=== PATIENT | male | born 1960 | race Two or more races ===

== ENCOUNTER 2019-01-21 14:30 | Inpatient (IN) | payer MEDICARE, OTHER ==
[~2019-01-21] VITALS: Ht 172.7 cm; Wt 68.9 kg
[2019-01-21] MEDS ORDERED: MAG HYDROX/AL HYDROX/SIMETH 30 ML UDC PO PRN (15:30)
[2019-01-21] MEDS ORDERED: MAGNESIUM HYDROXIDE 30 ML UDC PO PRN (15:30)
[2019-01-21] MEDS ORDERED: BLOOD SUGAR DIAGNOSTIC 1 EACH STRIP IN ONE (15:30)
[2019-01-21 16:00] VITALS: BP 151/100
--- NOTE | 2019-01-21 17:26 | NUR ---
GPS/RN-NOTES [facility] 58 [facility]ARTEL ( PSYCHIATRIST) MADE AWARE WITH ORDERS AND DR. CAT MADE AWARE OF THE ADMISSION. PATIENT ON 5150 HOLD FOR DTS. UPON FACE TO FACE ASSESSMENT, PATIENT A/O TO NAME ONLY AMBULATORY USING WALKER.HOLD WAS VERIFIED WITH THE PATIENT BUT PATIENT WAS UNABLE TO MAKE MEANINGFUL CONVERSATION DUE TO PSYCHOTIC BEHAVIOR. ADVISEMENT AND PATIENT'S RIGHT WAS GIVEN TO THE PATIENT. FULL BODY ASSESSMENT, CONTRABAND AND MRSA SWAB DONE. PATIENT WAS ORIENTED IN THE UNIT AND UNIT POLICIES. PATIENT'S FATHER KAYLA JOHNS [phone] MADE AWARE OF THE ADMISSION.PER THE FATHER HE IS THE DPOA FOR THE PATIENT ORTHOPEDIC CODER INSTRUCTED KAYLA JOHNS TO FAX THE DPOA PAPER IN THE UNIT. STATED " I WILL FAX IT TOMORROW". PATIENT WAS UNABLE TO SIGN ADMISSION PAPERS DUE TO MENTAL STATUS.
[2019-01-21 20:00] VITALS: BP 149/88
[2019-01-22] MEDS: clonazePAM 0.5 MG TABLET PO PRN ×2 (02:35→21:51)
[2019-01-22 06:39] LABS: ALBUMIN 2.7 g/dL (3.4-5.0); BILIRUBIN,TOTAL 0.4 mg/dL (0.2-1.0); CALCIUM, SERUM 8.5 mg/dL (8.5-10.1); CREATININE 0.7 mg/dL (0.6-1.3); POTASSIUM 4.5 mmol/L (3.5-5.1); TOTAL PROTEIN, SERUM 7.3 g/dL (6.4-8.2)
[2019-01-22 06:48] LABS: CHOLESTEROL 103 mg/dL (<200); HDL CHOLESTEROL 27 mg/dL (40-60); LDL 72 mg/dL (0-99); TRIGLYCERIDES 72 mg/dL (30-150)
[2019-01-22 08:00] VITALS: BP 128/61
[2019-01-22] MEDS: DIVALPROEX SODIUM 250 MG TABLET.DR PO SCH ×2 (10:22→20:53)
[2019-01-22] MEDS: risperiDONE 1 MG TABLET PO SCH ×2 (10:23→16:39)
--- NOTE | 2019-01-22 11:33 | NUR ---
WOUND CARE CONSULT: PATIENT PRESENTS WITH SCABS ON RT AND LT TOES,POA, PATIENT IS INDEPENDENT WITH BED MOBILITY WILL DEFER TO DP FOR TREATMENT PLANS, DISCUSSED PLAN OF CARE WITH NURSING STAFF Addendum: 01/22/19 at 1141 by JAMEEL NGUYEN RN Amended: Links added.
--- NOTE | 2019-01-22 15:00 | NUR ---
GROUP NOTE: YAN prompted pt to participate in group session on this present day discussing "current issues you are having while being on a hold." Pt is unable to participate at this time as he is not appropriate for group due to pt displaying symptoms of psychosis and actively hallucinating and making bizarre statements. Pt is unable to follow directions in a group setting. Addendum: 01/23/19 at 1125 by ROBERT HEREDIA group date 01/22/19 at 1400.
--- NOTE | 2019-01-22 15:15 | NUR ---
SW spoke with pts father/LPS conservator Oneal [phone] who provided SW with collateral information and also discussed pts discharge plan. Per father, he wishes for pt to be discharged to a locked SNF as pt has eloped several times from various board and cares to the point where father has had to file 3 missing persons reports in the past 2 month. Per father pt has been psychiatrically hospitalized 5 times in the last 2 months and stated pt has not received the proper psychiatric treatment he needs due to pt being non-compliant with his care and medications.
[2019-01-22 16:00] VITALS: BP 137/75
[2019-01-22 19:49] VITALS: BP 143/73
[2019-01-23 09:12] VITALS: BP 165/76
[2019-01-23] MEDS: DIVALPROEX SODIUM 250 MG TABLET.DR PO SCH ×2 (09:12→21:51)
[2019-01-23] MEDS: risperiDONE 1 MG TABLET PO SCH ×2 (09:12→16:37)
[2019-01-23] MEDS: ACETAMINOPHEN 325 MG TABLET PO PRN (09:23)
--- NOTE | 2019-01-23 09:23 | NUR ---
RN NOTES ADMINISTERED TYLENOL 650 MG PO PRN FOR BLE PAIN 5/10 PER PATIENT REQUEST, CONTINUED MONITORING.
--- NOTE | 2019-01-23 10:37 | NUR ---
INITIAL DISCHARGE PLAN: Per father/LPS conservator Oneal [phone] pt needs locked SNF placement. SW will help form a safe and proper discharge in collaboration with .
[2019-01-23 16:00] VITALS: BP 149/90
--- NOTE | 2019-01-23 16:16 | NUR ---
Group Note: SW prompted pt to participate in group session for the topic of discharge planning. Pt is unable to participate in group therapy due to psychosis, responding to internal stimuli and is incoherent with his speech.
[2019-01-23] MEDS: clonazePAM 0.5 MG TABLET PO PRN ×2 (16:37→21:52)
--- NOTE | 2019-01-23 16:37 | NUR ---
rn notes administered Klonopin 1 mg po prn for anxiety, per patients request v/s taken BP-149/90, P-98. Also lab result A1C 6.[address] Molina. no new order at this time. MD will follow patient tomorrow. continued monitoring.
[2019-01-23 20:18] VITALS: BP 149/89
[2019-01-24] MEDS: clonazePAM 0.5 MG TABLET PO PRN ×3 (03:02→21:03)
[2019-01-24 08:00] VITALS: BP 159/92
[2019-01-24] MEDS: DIVALPROEX SODIUM 250 MG TABLET.DR PO SCH ×2 (09:04→21:03)
[2019-01-24] MEDS: risperiDONE 1 MG TABLET PO SCH (09:04)
[2019-01-24 16:00] VITALS: BP 142/68
[2019-01-24] MEDS: risperiDONE 0.25 MG TABLET PO SCH (16:06)
--- NOTE | 2019-01-24 16:17 | NUR ---
GROUP NOTE: SW prompted pt to participate in group session on this present day discussing "medication compliance." Pt is responding to internal stimuli and not able to engage in a meaningful conversation. Pt has disorganized/mumbled speech and stating he's the mastermind of the world.
[2019-01-24 20:17] VITALS: BP 166/96
[2019-01-25] MEDS: clonazePAM 0.5 MG TABLET PO PRN ×2 (03:18→20:54)
[2019-01-25] MEDS: ACETAMINOPHEN 325 MG TABLET PO PRN ×2 (06:34→20:56)
[2019-01-25 08:00] VITALS: BP 143/82
[2019-01-25] MEDS: DIVALPROEX SODIUM 250 MG TABLET.DR PO SCH ×2 (08:00→20:23)
[2019-01-25] MEDS: risperiDONE 0.25 MG TABLET PO SCH ×2 (08:00→16:32)
--- NOTE | 2019-01-25 14:29 | NUR ---
YAN faxed SNF referral to Jasmin, physician practice coordinator at [facility] Address: [address] [facility] [place] [address] for review.
--- NOTE | 2019-01-25 15:35 | NUR ---
GROUP NOTE: SW prompted pt to participate in group session on this present day discussing "treatment compliance." Pt is complaint with treatment but not able to engage in a meaningful conversation. SW provided intervention however, pt is unable to comprehend due current symptoms of psychosis and his disorganized thought process with mumbled speech. Pt was focused on the socks he was wearing as gloves stating that he needed to keep the satellite from reaching his hands. Pt then walked away.
[2019-01-25 16:00] VITALS: BP 157/90
[2019-01-25 20:00] VITALS: BP 140/85
--- NOTE | 2019-01-25 20:55 | NUR ---
CLONAZEPAM 1 MG TAB PO GIVEN FOR ANXIETY.
--- NOTE | 2019-01-25 20:56 | NUR ---
C/O PAIN ON BOTH FEET, TYLENOL 650 MG TAB PO GIVEN.
[2019-01-26] MEDS: clonazePAM 0.5 MG TABLET PO PRN ×3 (01:04→20:00)
--- NOTE | 2019-01-26 01:05 | NUR ---
KLONOPIN 1 MG TAB PO GIVEN FOR ANXIETY, NOT SLEEPING.
[2019-01-26 08:00] VITALS: BP_SYST 126; BP_SYST 130; BP_DIAS 68; BP_DIAS 75
[2019-01-26] MEDS: DIVALPROEX SODIUM 250 MG TABLET.DR PO SCH ×2 (08:14→20:16)
[2019-01-26] MEDS: risperiDONE 0.25 MG TABLET PO SCH ×2 (08:14→16:17)
[2019-01-26] MEDS: ACETAMINOPHEN 325 MG TABLET PO PRN ×2 (11:02→18:17)
--- NOTE | 2019-01-26 11:10 | NUR ---
RN NOTES PT COMPLAINED THAT HE HAD "PAIN ALL OVER". WILL GIVE PRN TYLENOL AND CONTINUE TO MONITOR.
--- NOTE | 2019-01-26 12:00 | NUR ---
RN NOTES PRN KLONOPIN 1 MG PO GIVEN FOR ANXIETY
--- NOTE | 2019-01-26 14:16 | NUR ---
YAN faxed SNF referral to Enedina student admissions clerk at [facility] Address: [address] [place] [address] for review.
--- NOTE | 2019-01-26 14:20 | NUR ---
RN NOTES PT NOTED TO HAVE SCRATCHED HIS FOREHEAD. PICTURE TAKEN AND ADDED TO CHART.
--- NOTE | 2019-01-26 14:21 | NUR ---
SW received a call from Monik, home school coordinator at [facility] Address: [address] [facility], [place] [address] stating that currently they do not have a male bed available.
--- NOTE | 2019-01-26 14:48 | NUR ---
GROUP NOTE: SW prompted pt to participate in group session on this present day discussing "discharge planning." Pt stated that he wanted to leave today and also stated that medication saves people and that it reverses the metaphors. Pt continues to have disorganized thinking with mumbled speech.
[2019-01-26 20:00] VITALS: BP 147/78
--- NOTE | 2019-01-26 20:00 | NUR ---
HYPERACTIVE INSIDE HIS ROOM, ANXIOUS. KLONOPIN 1 MG TAB PO GIVEN.
[2019-01-27 08:00] VITALS: BP 130/69
[2019-01-27] MEDS: DIVALPROEX SODIUM 250 MG TABLET.DR PO SCH ×2 (08:18→20:10)
[2019-01-27] MEDS: risperiDONE 0.25 MG TABLET PO SCH ×2 (08:19→16:47)
[2019-01-27] MEDS: ACETAMINOPHEN 325 MG TABLET PO PRN ×2 (09:25→20:22)
[2019-01-27 09:49] VITALS: BP 157/89
--- NOTE | 2019-01-27 09:49 | NUR ---
GPS RN NOTE PT REPORTED TO THE NURSE THAT HE HAD SOB AND CHEST PAIN, VS OBTAINED, PT ASSISTED TO BED, INFORMED PRIMARY HOSPITALIST MYRIAM CAR AND RECEIVED ORDERS FOR STATE TROPONIN LAB DRAW AND EKG. VERIFIED VIA READ BACK AND CARRIED OUT.
--- NOTE | 2019-01-27 10:00 | NUR ---
GPS RN NOTE PT STRONGLY REFUSING STAT TROPONIN DRAW AT THIS TIME. PT STATED "IF SHE POKES ME I WILL HIT HER" AND BECAME VERY AGITATED. PT STATED "I DON'T HAVE CHEST PAIN ANYMORE". EDUCATION PROVIDED, PT STARTED TO WALK AWAY AND SAID "DON'T POKE ME". INFORMED CHARGE NURSE.
--- NOTE | 2019-01-27 11:49 | NUR ---
GPS RN NOTE PT CONTINUES TO REFUSE LAB DRAW AND EKG, TOLD RESPIRATORY THERAPIST "I REFUSE, GO AWAY".
--- NOTE | 2019-01-27 12:00 | NUR ---
GPS RN NOTE PT CONTINUING TO REFUSE TROPONIN LAB DRAW AND EKG, PRIMARY HOSPITALIST MYRIAM CAR NP AWARE
[2019-01-27] MEDS: clonazePAM 0.5 MG TABLET PO PRN ×2 (13:44→19:44)
--- NOTE | 2019-01-27 13:44 | NUR ---
GPS RN NOTE PT REQUESTING "A PILL, I FEEL RESTLESS". KLONOPIN 1MG ADMINISTERED ORDERED.
[2019-01-27 16:00] VITALS: BP 144/96
--- NOTE | 2019-01-27 17:22 | NUR ---
GPS RN NOTE PT REQUESTING MEDICATION FOR CONSTIPATION, MILK OF MAG 30ML ADMINISTERED ORDERED.
[2019-01-27 20:00] VITALS: BP 134/79
[2019-01-28] MEDS: clonazePAM 0.5 MG TABLET PO PRN ×3 (01:00→23:39)
[2019-01-28 08:00] VITALS: BP 143/69
[2019-01-28] MEDS: risperiDONE 0.25 MG TABLET PO SCH ×2 (08:54→16:07)
[2019-01-28] MEDS: DIVALPROEX SODIUM 250 MG TABLET.DR PO SCH ×2 (08:54→20:14)
[2019-01-28] MEDS: ACETAMINOPHEN 325 MG TABLET PO PRN ×2 (09:07→20:48)
[2019-01-28 16:00] VITALS: BP 129/76
[2019-01-28 20:02] VITALS: BP 174/95
[2019-01-28 21:30] VITALS: BP 152/76
[2019-01-29 08:00] VITALS: BP 139/76
[2019-01-29] MEDS: risperiDONE 1 MG TABLET PO SCH ×2 (10:06→16:40)
[2019-01-29] MEDS: DIVALPROEX SODIUM 250 MG TABLET.DR PO SCH ×2 (10:06→21:33)
--- NOTE | 2019-01-29 13:27 | NUR ---
YAN contacted Enedina, regulatory coordinator at [facility] Address: [address] [place] [address] who stated the facility is unable to accommodate pt due to his psychiatric history.
[2019-01-29] MEDS: clonazePAM 1 MG TABLET PO PRN ×2 (14:52→23:58)
--- NOTE | 2019-01-29 14:53 | NUR ---
GPS/RN-NOTES PATIENT REQUESTING KLONOPIN STATED" I NEED KLONOPIN TO RELAX ME". KLONOPIN 1MG P.O GIVEN PRN ORDER. WILL CONT. MONITORING FOR SAFETY AND BEHAVIOR.
--- NOTE | 2019-01-29 15:45 | NUR ---
Group Note: SW prompted pt to participate in group regarding discharge planning. Pt stated that he did not want to attend and that he has been taking his medications. SW stated that the topic was about discharge planning and he stated that he did not want to discuss that with others. Pt continues to have disorganized thinking with mumbled speech.
--- NOTE | 2019-01-29 15:55 | NUR ---
GPS/RN-NOTES PATIENT SITTING IN THE BED ,CALM NO ACUTE DISTRESS NOTED.
[2019-01-29 16:00] VITALS: BP 145/73
--- NOTE | 2019-01-29 19:30 | NUR ---
GPS RN NOTE, RECEIVED PATIENT AWAKE AND IN BED, NO S/S OR COMPLAINTS OF PAIN AT THIS TIME. PATIENT IS DISPLAYING NO S/S OF APPARENT DISTRESS AT THIS TIME. PATIENT BREATHING IS UNLABORED WITH EQUAL RISE AND FALL OF THE CHEST. PATIENT IS ALERT AND ORIENTED X 3 ON ROOM AIR WITH A SPO2 95 %. PATIENT IS COMPLIANT WITH MEDICATION, DISORGANIZED, DELUSIONAL, SUSPICIOUS, PARANOID, AND NEEDS CONSTANT REORIENTATION. PATIENT DENIES SUICIDE IDEATIONS AND HOMICIDAL IDEATIONS AT THIS TIME. PATIENT ASSISTED WITH TURNING AND REPOSITIONING Q2 HR AND PRN FOR COMFORT AND CIRCULATION. PATIENT HAS NO NEEDS AT THIS TIME. PATIENT EDUCATED ON THE USE OF THE CALL DORSEY. PATIENT BED SIDE RAILS UP X 2 FOR SAFETY, BED IS LOCKED AND LOW. WILL CONTINUE TO MONITOR Q15 MIN WITH THE HELP OF STAFF TO MAINTAIN SAFETY.
[2019-01-29 19:41] VITALS: BP 130/69
[2019-01-29] MEDS: ACETAMINOPHEN 325 MG TABLET PO PRN (22:16)
--- NOTE | 2019-01-29 22:16 | NUR ---
GPS RN NOTE, PATIENT HAS A COMPLAINT OF LOWER BACK AT 7 OUT OF 10 ON THE PAIN SCALE AND IS REQUESTING TYLENOL AT THIS TIME. PATIENT VITAL SIGNS ARE STABLE. GAVE TYLENOL 650MG PO Q6HR PRN ORDERED. WILL REASSESS PAIN AND I WILL CONTINUE TO MONITOR THIS PATIENT.
--- NOTE | 2019-01-29 23:58 | NUR ---
GPS RN NOTE, PATIENT HAS A COMPLAINT OF FEELING ANXIOUS AND IS REQUESTING KLONOPIN AT THIS TIME. PATIENT VITAL SIGNS ARE STABLE. GAVE KLONOPIN 1MG PO Q4HR PRN ORDERED. WILL REASSESS FOR ANXIETY AND I WILL CONTINUE TO MONITOR THIS PATIENT.
[2019-01-30 08:00] VITALS: BP 150/85
[2019-01-30] MEDS: risperiDONE 1 MG TABLET PO SCH ×2 (09:08→17:28)
[2019-01-30] MEDS: DIVALPROEX SODIUM 250 MG TABLET.DR PO SCH ×2 (09:08→20:09)
--- NOTE | 2019-01-30 09:19 | NUR ---
YAN faxed SNF referral to Kati, education coordinator at [facility] Address: [address] [place] [address] for review.
[2019-01-30] MEDS: clonazePAM 1 MG TABLET PO PRN ×2 (10:54→20:52)
--- NOTE | 2019-01-30 10:54 | NUR ---
RN NOTE: PATIENT HAS INCREASED AGITATION AND VERBAL AGGRESSION STATING "HES GOING TO DEMOLISH ME". PRN KLONOPIN GIVEN FOR BEHAVIORAL DISTURBANCE.
--- NOTE | 2019-01-30 11:50 | NUR ---
YAN faxed SNF referral to Mk, global coordinator at [facility] Address: [address] [facility], [place] [address] for review.
--- NOTE | 2019-01-30 12:12 | NUR ---
SW received a call from Mk, service center coordinator at [facility] Address: [address] [facility], [place] [address] stating pt has been clinically approved.
--- NOTE | 2019-01-30 14:40 | NUR ---
SW received a call from [facility] lead case manager [phone] who requested discharge information once pt is scheduled to discharged.
--- NOTE | 2019-01-30 15:55 | NUR ---
YAN spoke with pts father/LPS conservator Oneal [phone] and informed him pt will be discharged to [facility] and provided him with discharge information. Father was agreeable with discharge plan. Addendum: 01/31/19 at 1016 by ROBERT HEREDIA YAN informed pt father that Marcelo [facility] case mgr [phone] has contacted YAN requesting discharge information. Father stated that he was not aware that pt was connected with [facility] and requested contact information to contact Marcelo to ask questions and asked YAN not to provide him with discharge information as he would be calling him directly.
[2019-01-30 16:00] VITALS: BP 143/71
[2019-01-30] MEDS: ACETAMINOPHEN 325 MG TABLET PO PRN (22:17)
[2019-01-31] MEDS: clonazePAM 1 MG TABLET PO PRN ×2 (02:30→11:45)
[2019-01-31 08:00] VITALS: BP 150/88
[2019-01-31] MEDS: risperiDONE 1 MG TABLET PO SCH (08:20)
[2019-01-31] MEDS: DIVALPROEX SODIUM 250 MG TABLET.DR PO SCH (08:20)
--- NOTE | 2019-01-31 10:11 | NUR ---
DISCHARGE NOTE: Pt will be discharging at 1:00pm via [facility] to [facility] [place] [facility] [address] [place] [address] P: [phone]. Pts father/LPS conservator Oneal [phone] has been notified and agrees with discharge plan. Pts mood is euthymic with congruent affect. Pt is at baseline and responding to visual/auditory hallucinations. Pt will be under the care of Psychiatrist: Dr. Magana Address: [address] [place] [address] Phone: [phone] and Speech Clinician: Dr Molina Address: [address] [address] [phone]. The multidisciplinary exitcare form was done, printed, signed, and given to the patient.
--- NOTE | 2019-01-31 11:46 | NUR ---
RN NOTE: PATIENT COMPLAINING OF AGITATION. PRN KLONOPIN GIVEN.
[2019-01-31] MEDS: ACETAMINOPHEN 325 MG TABLET PO PRN (12:01)
--- NOTE | 2019-01-31 12:02 | NUR ---
RN NOTE: PATIENT COMPLAINING OF HEADACHE AND REQUESTING TYLENOL. PRN TYLENOL GIVEN.
--- NOTE | 2019-01-31 13:20 | NUR ---
TANK BUILDER AND ERECTOR NOTE: PATIENT IS A 58 YEAR OLD MALE DISCHARGED TO [facility] [id number] [facility] [id number] . PATIENT IS IN STABLE CONDITION. VSS. NO ACUTE DISTRESS NOTED. NO COMPLAINTS. COMPLIANT WITH MEDICATION MANAGEMENT. COOPERATIVE WITH PLAN OF CARE. PSYCHIATRIC TREATMENT PLANS MET. MEDICAL TREATMENT PLANS DEFERRED FOR CONTINUAL MONITORING. DENIES SI/HI VAH AT THE TIME OF DISCHARGE. PATIENT REFUSED SKIN CHECK. EDUCATED PATIENT ABOUT AFTERCARE WITH COPY PROVIDED. RETURNED PERSONAL BELONGINGS TO PATIENT. MEDICATIONS RECONCILED WITH DR OSUNA AND DR MARTEL ALONG WITH PSYCHIATRIC DISCHARGE ORDERS. PATIENT REFUSED TO SIGN DISCHARGE PAPERWORK AND WHEN ASKED WHY HE STATED "THAT'S MY PREROGATIVE". FOR FOLLOW UP WITH PSYCHIATRIST DR WEBB [address] [facility] [id number] AND SOAP DRIER OPERATOR DR BLANC [address] [phone] WITHIN 1 WEEK. PATIENT LEFT THE [facility] GPS AT 1320 VIA AMBULANCE. .
== END 2019-01-31 13:20 | DRG 885 ==
LOC: GPS 14:30
PROVIDERS: ADMIT Psychiatry & Neurology Psychiatry; ATTEND Nurse Practitioner Acute Care
DX: F25.9 Schizoaffective disorder, unspecified (principal); E43 Unspecified severe protein-calorie malnutrition; E87.1 Hypo-osmolality and hyponatremia; Z88.0 Allergy status to penicillin; I10 Essential (primary) hypertension; E11.9 Type 2 diabetes mellitus without complications; F31.9 Bipolar disorder, unspecified; E86.1 Hypovolemia; E88.09 Other disorders of plasma-protein metabolism, not elsewhere classified; Z68.23 Body mass index [BMI] 23.0-23.9, adult; N40.0 Benign prostatic hyperplasia without lower urinary tract symptoms; K21.9 Gastro-esophageal reflux disease without esophagitis; Z87.891 Personal history of nicotine dependence; L89.892 Pressure ulcer of other site, stage 2
CPT/HCPCS: 36415; 80053-TC; 80061-TC; 80164-TC; 82962-TC; 87081-TC